=== PATIENT | female | born 1960 | race Caucasian/White ===

== ENCOUNTER → 2017-12-01 | Outpatient (CLI) | payer OTHER ==
[~2017-12-01] MED LIST: DAYPRO600 M1 PO; MOBIC15 MG PO; PLAQUENIL200 MG PO; TRAMADOL50 MG PO; VITAMIN D2000 IU PO
[2017-12-02 05:05] LABS: HEP B CORE AB TOTAL 006718 Negative (Negative); HEPATITIS B SURFACE AB 006395 Non Reactive (.); HEPATITIS B SURFACE AG Negative (Negative)
[2017-12-04 06:09] LABS: MITOGEN VALUE 5.29 IU/mL (.); TB Ag VALUE 0.04 IU/mL (.); TB GOLD Negative (Negative)
== END | disposition home or self-care (01) ==
LOC: LAB 12:49
PROVIDERS: Internal Medicine Rheumatology
DX: M05.79 Rheumatoid arthritis with rheumatoid factor of multiple sites without organ or systems involvement (principal)

== ENCOUNTER 2023-01-29 19:50 | Emergency (ER) | payer OTHER ==
[~2023-01-29] VITALS: Ht 162.5 cm; Wt 98.5 kg
[2023-01-29] MEDS ORDERED: [UNRECOGNIZED DRUG - OTHER] SQ (19:57)
[2023-01-30] MEDS ORDERED: HYDROCODONE-AC1 EAC1 PO (00:04)
== END 2023-01-30 00:08 | disposition home or self-care (01) ==
LOC: ED 19:50
DX: S52.591A Other fractures of lower end of right radius, initial encounter for closed fracture (principal); S43.004A Unspecified dislocation of right shoulder joint, initial encounter; Z88.0 Allergy status to penicillin; Z79.899 Other long term (current) drug therapy; F17.200 Nicotine dependence, unspecified, uncomplicated; W18.39XA Other fall on same level, initial encounter; Y93.89 Activity, other specified; Y92.89 Other specified places as the place of occurrence of the external cause; Y99.8 Other external cause status

== ENCOUNTER → 2023-03-01 | Outpatient (CLI) | payer OTHER ==
[~2023-03-01] MED LIST changes: +HYDROCODONE-AC1 EAC1 PO; +[UNRECOGNIZED DRUG - OTHER] SQ
== END | disposition home or self-care (01) ==
LOC: MRI 01:48
PROVIDERS: ATTEND Orthopaedic Surgery
DX: M75.121 Complete rotator cuff tear or rupture of right shoulder, not specified as traumatic (principal); S42.291S Other displaced fracture of upper end of right humerus, sequela; M75.21 Bicipital tendinitis, right shoulder; M19.011 Primary osteoarthritis, right shoulder; M25.411 Effusion, right shoulder; R60.0 Localized edema; M75.91 Shoulder lesion, unspecified, right shoulder; X58.XXXS Exposure to other specified factors, sequela

== ENCOUNTER → 2023-03-12 | Outpatient (CLI) | payer OTHER | END | disposition home or self-care (01) | LOC: RAD 01:13 | PROVIDERS: ATTEND Orthopaedic Surgery | DX: M85.822 Other specified disorders of bone density and structure, left upper arm (principal) ==

== ENCOUNTER 2024-11-14 11:31 | Emergency (ER) | payer MEDICARE ==
[~2024-11-14] VITALS: Ht 162.5 cm; Wt 98.4 kg
[2024-11-14 12:14] LABS: BASO % 0.4 % (0.0-1.0); EOS % 0.6 % (1.0-4.0); HEMATOCRIT 41.5 % (37.0-47.0); MEAN CELL VOLUME 99.3 fl (81.0-99.0); MEAN CORPUSCULAR HGB 32.3 pg (27.0-31.0); MEAN CORPUSCULAR HGB CONC 32.5 g/dl (33.0-37.0); MEAN PLATELET VOLUME 10.6 fl (9.6-12.3); MONO # 0.6 10*3/uL (0.1-1.0); MONO % 8.1 % (3.0-9.0); NEUT % 68.8 % (47.0-73.0); PLATELET COUNT AUTOMATED 207 10*3/uL (130-400); RED BLOOD COUNT 4.18 10*6/uL (4.10-5.10); RED CELL DISTRI WIDTH 12.5 % (0-14.5); WHITE BLOOD COUNT 7.2 10*3/uL (4.8-10.8)
[2024-11-14 12:29] LABS: ACT PARTIAL THROMBO TIME 24.4 SECONDS (20.0-32.1)
[2024-11-14 12:37] LABS: ALKALINE PHOSPHATASE 55 U/L (46-116); BUN 28 mg/dl (9-23); CHLORIDE 108 mmol/L (98-107); SGPT/ALT < 7 U/L (5-49); TOTAL PROTEIN 7.2 gm/dL (6.0-8.0)
== END 2024-11-14 13:00 | disposition home or self-care (01) ==
LOC: ED 11:31
PROVIDERS: Internal Medicine
DX: R00.2 Palpitations (principal); M79.7 Fibromyalgia; R10.2 Pelvic and perineal pain; Z88.0 Allergy status to penicillin

== ENCOUNTER 2025-01-01 18:43 | Emergency (ER) | payer MEDICARE ==
[~2025-01-01] VITALS: Ht 162.5 cm; Wt 95.7 kg
[2025-01-01 20:15] LABS: BASO % 0.4 % (0.0-1.0); EOS # 0.1 10*3/uL (0.0-0.4); EOS % 1.2 % (1.0-4.0); HEMATOCRIT 38.9 % (37.0-47.0); MEAN CELL VOLUME 100.5 fl (81.0-99.0); MEAN CORPUSCULAR HGB 32.6 pg (27.0-31.0); MEAN CORPUSCULAR HGB CONC 32.4 g/dl (33.0-37.0); MEAN PLATELET VOLUME 10.7 fl (9.6-12.3); MONO # 0.5 10*3/uL (0.1-1.0); MONO % 7.2 % (3.0-9.0); NEUT # 4.7 10*3/uL (2.3-7.9); NEUT % 68.8 % (47.0-73.0); PLATELET COUNT AUTOMATED 181 10*3/uL (130-400); RED BLOOD COUNT 3.87 10*6/uL (4.10-5.10); RED CELL DISTRI WIDTH 12.9 % (0-14.5); WHITE BLOOD COUNT 6.8 10*3/uL (4.8-10.8)
[2025-01-01 20:29] LABS: BUN 26 mg/dl (9-23); CHLORIDE 109 mmol/L (98-107); POTASSIUM 4.1 mmol/L (3.4-5.1)
[2025-01-01] MEDS ORDERED: LORazepam 1 MG TAB PO ONE (20:45)
== END 2025-01-01 21:06 | disposition home or self-care (01) ==
LOC: ED 18:43
PROVIDERS: Internal Medicine
DX: F41.9 Anxiety disorder, unspecified (principal); N17.9 Acute kidney failure, unspecified; D75.89 Other specified diseases of blood and blood-forming organs; Z88.0 Allergy status to penicillin; Z79.899 Other long term (current) drug therapy

== ENCOUNTER 2025-03-02 00:44 | Emergency (ER) | payer MEDICARE ==
[~2025-03-02] VITALS: Ht 162.5 cm; Wt 99.8 kg
[2025-03-02] MEDS ORDERED: SERTRALINE HYDR25 MG PO (01:33)
[2025-03-02] MEDS ORDERED: ACTEMRA AC162 MG/0.9 SQ (01:33)
[2025-03-02] MEDS ORDERED: diphenhydrAMINE hydrochloride 50 MG/ML VIAL IV ONE (03:25)
[2025-03-02] MEDS ORDERED: methylPREDNISolone sod succ 125 MG VIAL IV ONE (03:25)
[2025-03-02] MEDS ORDERED: cefTRIAXone Sodium 1 GM/10 ML SYR IV ONE (03:30)
[2025-03-02 03:35] LABS: BASO % 0.4 % (0.0-1.0); EOS # 0.2 10*3/uL (0.0-0.4); HEMATOCRIT 39.8 % (37.0-47.0); MEAN CORPUSCULAR HGB 32.4 pg (27.0-31.0); MEAN CORPUSCULAR HGB CONC 32.4 g/dl (33.0-37.0); MEAN PLATELET VOLUME 10.4 fl (9.6-12.3); MONO # 0.5 10*3/uL (0.1-1.0); MONO % 6.3 % (3.0-9.0); NEUT # 5.6 10*3/uL (2.3-7.9); NEUT % 69.6 % (47.0-73.0); PLATELET COUNT AUTOMATED 247 10*3/uL (130-400); RED BLOOD COUNT 3.98 10*6/uL (4.10-5.10); RED CELL DISTRI WIDTH 12.7 % (0-14.5); WHITE BLOOD COUNT 8.1 10*3/uL (4.8-10.8)
[2025-03-02 03:55] LABS: BUN 27 mg/dl (9-23); CHLORIDE 109 mmol/L (98-107); POTASSIUM 4.2 mmol/L (3.4-5.1)
[2025-03-02] MEDS ORDERED: CEPHALEXIN500 M1 PO (06:51)
[2025-03-02] MEDS ORDERED: MEDROL DOSEPAK4 MG PO (06:51)
== END 2025-03-02 07:08 | disposition home or self-care (01) ==
LOC: ED 00:44
PROVIDERS: Emergency Medicine
DX: S00.86XA Insect bite (nonvenomous) of other part of head, initial encounter (principal); Z88.0 Allergy status to penicillin; W57.XXXA Bitten or stung by nonvenomous insect and other nonvenomous arthropods, initial encounter; Y93.89 Activity, other specified; Y92.89 Other specified places as the place of occurrence of the external cause; Y99.8 Other external cause status; Z79.899 Other long term (current) drug therapy

== ENCOUNTER → 2025-05-25 | Outpatient (CLI) | payer MEDICARE ==
[~2025-05-25] MED LIST changes: +ACTEMRA AC162 MG/0.9 SQ; +CEPHALEXIN500 M1 PO; +MEDROL DOSEPAK4 MG PO; +SERTRALINE HYDR25 MG PO
== END | disposition home or self-care (01) ==
LOC: CARD 10:12
PROVIDERS: ATTEND Family Medicine
DX: R00.2 Palpitations (principal)